=== PATIENT | female | born 1995 | race Caucasian/White ===

== ENCOUNTER 2023-09-12 22:55 | Emergency (ER) | payer MEDICAID, OTHER ==
[~2023-09-12] VITALS: Ht 170.2 cm; Wt 74.8 kg
[2023-09-12 23:43] VITALS: BP 129/63; PULSE 68; RESP 17; TEMP 98.6; O2SAT 99
[2023-09-13] MEDS ORDERED: IBUP-1456 PO (01:38)
== END 2023-09-13 02:30 | disposition home or self-care (01) ==
LOC: ER 22:55
DX: G44.209 Tension-type headache, unspecified, not intractable (principal); E03.9 Hypothyroidism, unspecified
CPT/HCPCS: 70450